=== PATIENT | female | born 1965 | race African-American/Black ===

== ENCOUNTER 2019-11-18 17:05 | Emergency (ER) | payer OTHER | END 2019-11-18 18:50 | disposition home or self-care (01) | LOC: BURERS 17:05 | DX: S39.012A Strain of muscle, fascia and tendon of lower back, initial encounter (principal); E78.5 Hyperlipidemia, unspecified; E03.9 Hypothyroidism, unspecified; V89.2XXA Person injured in unspecified motor-vehicle accident, traffic, initial encounter | CPT/HCPCS: 99283 ==